=== PATIENT | female | born 1980 | race Caucasian/White ===

== ENCOUNTER 2017-10-16 20:01 | Emergency (ER) | payer OTHER ==
[2017-10-16 20:36] VITALS: TEMP 97.3; BMI 41.3
[2017-10-16] MEDS ORDERED: ONDANSETRON *ODT* 4 MG TABLET SL ONE (20:36)
--- NOTE | 2017-10-16 20:36 | PDOC ---
Rapid Medical Evaluation Time Seen by Provider: 10/16/17 20:31 Medical Evaluation: Allergies Allergy/AdvReac Type Severity Reaction Status Date / Time No Known Allergies Allergy Verified 02/22/16 19:26 10/16/17 20:32 The patient presents with a chief complaint of: Vomiting today. No fever, chills, no pain. I have performed a brief in-person evaluation of this patient. Pertinent physical exam findings: vss, Abdomen soft, non tender, nondistended. Lungs clear. RRR I have ordered the following: Urinalysis, urine culture, urine preg. Zofran 4 mg po x 1 The patient will proceed to the ED for further evaluation. Discharge Disposition - Diagnosis Vomiting Qualifiers: Vomiting type: unspecified Vomiting Intractability: intractable Nausea presence : with nausea Qualified Code(s): R11.2 - Nausea with vomiting, unspecified - Referrals - Patient Instructions - Post Discharge Activity
[2017-10-16 21:09] LABS: HCG,QUALITATIVE URINE NEGATIVE
[2017-10-16 21:14] LABS: URINE APPEARANCE CLEAR; URINE BILIRUBIN NEGATIVE (NEGATIVE); URINE BLOOD NEGATIVE (NEGATIVE); URINE COLOR YELLOW; URINE GLUCOSE (UA) NEGATIVE (NEGATIVE); URINE KETONE NEGATIVE (NEGATIVE); URINE NITRITE NEGATIVE (NEGATIVE); URINE PROTEIN NEGATIVE (NEGATIVE)
[2017-10-16 21:20] LABS: URINE LEUK ESTERASE 1+ (NEGATIVE)
[2017-10-16 21:22] LABS: EPI CELLS FEW /HPF (FEW); URINE MUCUS RARE
[2017-10-16] MEDS ORDERED: RANITIDINE HCL 150 MG TABLET (FP) PO ONE (23:47)
--- NOTE | 2017-10-16 23:47 | PDOC ---
History of Present Illness - General Chief Complaint: Nausea/Vomiting Stated Complaint: VOMITING Time Seen by Provider: 10/16/17 20:31 History Source: Patient - History of Present Illness Initial Comments: 10/16/17 23:44 37 year old female c/o nausea, vomiting since 5 pm after eating shrimp. Denies abdominal pain, diarrhea, urinary symptoms at this time. patient reports that she is currently on Flagyl for Bacterial vaginosis, denies sick contact. Past History - Past Medical History Allergies/Adverse Reactions: Allergies Allergy/AdvReac Type Severity Reaction Status Date / Time No Known Allergies Allergy Verified 10/16/17 20:36 Home Medications: Ambulatory Orders NK [No Known Home Medication] 02/22/16 CVA: No COPD: No - Suicide/Smoking/Psychosocial Hx Smoking History: Never smoked Have you smoked in the past 12 months: No Information on smoking cessation initiated: No Hx Alcohol Use: No Drug/Substance Use Hx: No Substance Use Type: None Review of Systems - Review of Systems Able to Perform ROS?: Yes Is the patient limited Kazakh proficient: No Respiratory: No: Symptoms reported, See HPI, Cough, Orthopnea, Shortness of Breath, SOB with Exertion, SOB at Rest, Stridor, Wheezing, Productive cough, Hemoptysis, Other ABD/GI: Yes: Nausea, Vomiting. No: Symptoms Reported, See HPI, Abdominal Distended, Abd. Pain w/ defecation, Blood Streaked Bowels, Constipated, Diarrhea , Difficulty Swallowing, Poor Appetite, Poor Fluid Intake, Rectal Bleeding, Indigestion, Abdominal cramping, Tarry Stools, Other : No: Symptoms Reported, See HPI, Burning, Dysuria, Discharge, Frequency, Flank Pain, Hematuria, Incontinence, Pain, Urgency, Testicular Mass, Testicular Swelling, Lesions, Testicular Pain, Other *Physical Exam - Vital Signs Last Vital Signs Temp Pulse Resp BP Pulse Ox 97.3 F L 99 H 18 114/67 100 10/16/17 20:32 10/16/17 20:32 10/16/17 20:32 10/16/17 20:32 10/16/17 20:32 - Physical Exam General Appearance: Yes: Appropriately Dressed Respiratory/Chest: positive: Lungs Clear, Normal Breath Sounds Cardiovascular: positive: Regular Rhythm, Regular Rate Gastrointestinal/Abdominal: positive: Tender, Soft, Increased Bowel Sounds Musculoskeletal: positive: Normal Inspection. negative: CVA Tenderness Extremity: positive: Normal Capillary Refill, Normal Inspection, Normal Range of Motion Integumentary: positive: Normal Color, Dry, Warm Neurologic: positive: Fully Oriented, Alert, Normal Mood/Affect ED Treatment Course - ADDITIONAL ORDERS Additional order review: Laboratory Results 10/16/17 20:51 Urine Color Yellow Urine Appearance Clear Urine pH 6.0 Ur Specific Clayton 1.027 Urine Protein Negative Urine Glucose (UA) Negative Urine Ketones Negative Urine Blood Negative Urine Nitrite Negative Urine Bilirubin Negative Urine Urobilinogen 2.0 H Ur Leukocyte Esterase 1+ H Urine WBC (Auto) 2 Urine RBC (Auto) <1 Ur Epithelial Cells Few Urine Mucus Rare Urine HCG, Qual Negative Progress Note - Progress Note Progress Note: A: nausea and vomiting P: Zofran UA/ UCX: no urinary symptoms. Medical Decision Making - Medical Decision Making 10/17/17 01:30 tolerating PO liquids. will advise to continue hydration likely food poisoning vs viral gastroenteritis *DC/Admit/Observation/Transfer Diagnosis at time of Disposition: Gastroenteritis Vomiting Qualifiers: Vomiting type: unspecified Vomiting Intractability: intractable Nausea presence : with nausea Qualified Code(s): R11.2 - Nausea with vomiting, unspecified - Discharge Dispostion Disposition: HOME - Referrals Referrals: STAFF,NOT ON [Primary Care Provider] - - Patient Instructions Printed Discharge Instructions: DI for Vomiting -- Adult Additional Instructions: drink plenty of Fluids start a bland diet. follow up with your doctor as soon as possible return to the ED if symptoms worsen . - Post Discharge Activity Forms/Work/School Notes: Back to Work
[2017-10-17] MEDS ORDERED: RANITIDINE HCL 150 MG TABLET (FP) ONE (00:43)
[2017-10-17 01:49] VITALS: BP 129/87; PULSE 95
== END 2017-10-17 01:48 | disposition home or self-care (01) ==
LOC: JER 20:01
DX: K52.9 Noninfective gastroenteritis and colitis, unspecified (principal)
CPT/HCPCS: 81003; 81015; 84703; 87086; 99281-25

== ENCOUNTER 2017-11-28 07:15 | Inpatient (IN) | payer OTHER ==
[2017-11-27 09:11] VITALS: BMI 42.1
[~2017-11-28 07:15] MED LIST: BUPIVACAINE HCL/PF 0.5% (5MG/ML) 10 ML VIAL IJ ONE
[2017-11-28] MEDS ORDERED: DEXAMETHASONE SOD PHOSPHATE/PF 10 MG/ML SDV ONE (08:20)
[2017-11-28] MEDS ORDERED: BUPIVACAINE HCL/PF 0.25% (2.5MG/ML) 10 ML VIAL ONE (08:21)
[2017-11-28] MEDS ORDERED: MIDAZOLAM HCL 2 MG/2 ML SINGLE DOSE VIAL ONE ×2 (08:22)
[2017-11-28] MEDS ORDERED: ONDANSETRON 4 MG/2 ML VIAL IVPUSH PRN (08:32)
[2017-11-28] MEDS ORDERED: oxyCODONE HCL 5 MG TABLET PO PRN ×2 (08:32)
[2017-11-28] MEDS ORDERED: LACTATED RINGERS SOLUTION 1,000 ML IV SCH (08:45)
--- NOTE | 2017-11-28 09:13 | HP ---
History & Physical Update - History History: No Change - Physical Physical: No Change - Assessment Assessment: No Change - Plan Plan: No Change <Emma Arriaga - Last Filed: 11/28/17 09:12> - Plan Plan: No Change (Laparoscopic possible open vertical sleeve gastrectomy, possoble liver biopsy, upper endoscopy) <Jaime Pimentel - Last Filed: 11/28/17 09:24>
[2017-11-28] MEDS ORDERED: BUPIVACAINE HCL/PF 0.5% (5MG/ML) 10 ML VIAL ONE (09:26)
[2017-11-28] MEDS ORDERED: ceFAZolin SODIUM 1 GM VIAL IVPB ONE (09:50)
--- NOTE | 2017-11-28 11:13 | OP ---
Operative Note - Note: Operative Date: 11/28/17 Pre-Operative Diagnosis: morbid obesity Operation: Laparoscopic vertical sleeve gastrectomy, wedge liver biopsy, laparoscopic umbilical hernia repair, EGD Post-Operative Diagnosis: Other (Morbid obesity, heaptomegaly, umbilical hernia) Surgeon: Jaime Pimentel Splunk Developer: Emma Arriaga Anesthesia: General Specimens Removed: Greater curvature of stomach. Liver biopsy Estimated Blood Loss (mls): 30 Drains & Tubes with Location: 36 Fr bougie Operative Report Dictated: Yes
--- NOTE | 2017-11-28 11:34 | SURG ---
Surgery Portrait Studio Photographer Note Portrait Studio Photographer: Emma Arriaga PA-C Date of Service: 11/28/17 Diagnosis: morbid obesity Procedure: Laparoscopic vertical sleeve gastrectomy, wedge liver biopsy, laparoscopic umbilical hernia repair, EGD I was present for the entirety of the operative procedure. For further detail, please refer to operative report. Visit type - Case Type Case Type: Scheduled Admission - Emergency Emergency Visit: No - New patient This patient is new to me today: Yes Date on this admission: 11/28/17
[2017-11-28] MEDS: METOCLOPRAMIDE HCL INJECTION 10 MG/2 ML VIAL IVPUSH SCH ×3 (11:40→22:56)
[2017-11-28] MEDS: ACETAMINOPHEN 1000 MG/100 ML VIAL (NON FORMULARY) IVPB SCH ×3 (11:50→22:57)
[2017-11-28] MEDS: SODIUM CHLORIDE 1,000 ML IV SCH ×2 (12:25→21:25)
[2017-11-28 12:37] LABS: HEMATOCRIT 37.2 % (32.4-45.2); HEMOGLOBIN 12.9 GM/dL (10.7-15.3); MCH 32.1 pg (25.7-33.7); MCHC 34.8 g/dl (32.0-36.0); MEAN CELL VOLUME 92.4 fl (80-96); MEAN PLT VOLUME 8.1 fl (7.5-11.1); PLATELET COUNT 290 K/MM3 (134-434); RBC 4.03 M/mm3 (3.60-5.2); RDW 13.3 % (11.6-15.6); WHITE BLOOD COUNT 11.1 K/mm3 (4.0-10.0)
[2017-11-28 12:58] LABS: ALBUMIN 3.7 g/dl (3.4-5.0); ANION GAP 8 (8-16); BLOOD UREA NITROGEN 9 mg/dL (7-18); CALCIUM 8.1 mg/dL (8.5-10.1); CHLORIDE 106 mmol/L (98-107); CO2 23 mmol/L (21-32); CREATININE 0.8 mg/dL (0.55-1.02); GLUCOSE,RANDOM 131 mg/dL (74-106); POTASSIUM 4.4 mmol/L (3.5-5.1); SGOT/AST 49 U/L (15-37); SGPT/ALT 57 U/L (12-78); SODIUM 137 mmol/L (136-145)
[2017-11-28 13:00] LABS: ALK PHOS 88 U/L (45-117); BILIRUBIN,TOTAL 0.4 mg/dL (0.2-1.0); TOT PROT 7.1 g/dl (6.4-8.2)
[2017-11-28] MEDS ORDERED: ONDANSETRON 4 MG/2 ML VIAL ONE (13:02)
[2017-11-28] MEDS ORDERED: MORPHINE SULFATE 10 MG/1 ML *VIAL ONE (13:02)
[2017-11-28] MEDS: ONDANSETRON 4 MG/2 ML VIAL IVPUSH SCH ×4 (13:05→22:53)
[2017-11-28] MEDS ORDERED: PROMETHAZINE HCL 25 MG/1 ML VIAL IVPUSH ONE (13:08)
[2017-11-28] MEDS: morphine SULFATE 4 MG/ML VIAL IVPUSH PRN ×2 (13:10→15:48)
--- NOTE | 2017-11-28 16:08 | SPEC ---
DATE OF OPERATION: 11/28/2017 SURGEON: Jaime Pimentel M.D. PRINTED CIRCUIT BOARDS PINNER: Divina Bell and Divina Kennedy PREOPERATIVE DIAGNOSIS: Morbid obesity. POSTOPERATIVE DIAGNOSIS: 1. Morbid obesity. 2. Hepatomegaly. 3. Umbilical hernia. PROCEDURE: 1. Laparoscopic vertical sleeve gastrectomy. 2. Laparoscopic wedge liver biopsy. 3. Esophagogastroduodenoscopy/upper endoscopy. 4. Laparoscopic umbilical hernia repair. SPECIMENS: 1. Greater curvature of the stomach. 2. Wedge liver biopsy. BOUGIE SIZE: 36 [place]. ANESTHESIA: GET DRAINS: None. ESTIMATED BLOOD LOSS: 30 mL. REASON FOR THE PROCEDURE: This is a 37-year-old female presented to the office for weight loss options. After describing different options, decided to proceed with laparoscopic possible open vertical sleeve gastrectomy, possible liver biopsy and upper endoscopy. RISKS AND BENEFITS: After describing the different options for weight loss management, the patient decided to proceed with a laparoscopic, possible open vertical sleeve gastrectomy. The patient was seen by the respective subspecialties and cleared for surgery. The risks and benefits of the procedure were explained. These included bleeding, infection, hernia, DE, DVT, PE, injury to surrounding structures including the liver, colon, bowel, spleen, esophagus, vessel injury, nerve injury, weight regain, gastric leak, staple line leak, sleeve leak, obstruction, vitamin deficiency, hair loss and as some of the possible complications. The patient understood and signed informed consent. DESCRIPTION OF PROCEDURE: The patient was placed supine on the operating room table. The patient underwent general endotracheal intubation. A Tyler catheter was inserted. The arms were brought out at 90 degrees and secured. A footboard was placed and the legs were secured laterally with padding. The abdomen was prepped and draped in the usual sterile fashion. A timeout was performed. An incision was made in the left upper quadrant and a Veress needle inserted. Pneumoperitoneum was established. Subsequently, the Veress needle was removed and a 12-mm trocar was placed. The laparoscopic camera was then inserted and inspection of the abdominal cavity was performed. An incision was then made in the supraumbilical area and a 15-mm trocar was placed under direct visualization. A 5-mm trocar was then placed in the right upper quadrant and a 5-mm trocar was placed below the left subcostal margin. A stab wound was made in the subxiphoid area and a Nirmala clamp inserted and removed to dilate the tract. A Prasanna liver retractor was inserted. The post was secured at the bedside by the nursing staff. The patient was placed in steep reverse Trendelenburg position and the Prasanna liver retractor was used to secure the liver towards the anterior abdominal wall. The pylorus was identified and 6 cm proximal to it, the lesser sac was entered using the LigaSure device. All lateral attachments to the greater curvature of the stomach, including the short gastric vessels, were ligated using the LigaSure device toward the gastrosplenic and gastrophrenic ligaments. Once this was done in its entirety, it was confirmed that all tubes within the nasal or oropharyngeal cavity, including a temperature probe, was removed by Anesthesia. The bougie was then inserted by Anesthesia. Transection of the stomach was then begun staying adjacent to the bougie but away from the angularis. Transection of the stomach was performed near the portion of the stomach where the lesser sac was entered. Two laparoscopic Endo-THOMAS black amol were used at this location. Laparoscopic Endo THOMAS purple staple loads were then used for the remainder of the transection until the greater curvature of the stomach was fully transected. This was done staying close to the bougie. Care was taken to stay away from the angle of His cephalad. The staple line was then inspected. Hemostasis was identified. A leak test was then performed. It was clamped distally to the staple line. Irrigation solution was placed in the left upper quadrant and air was insufflated by Anesthesia into the sleeve. No leaks were identified. No obstruction was identified. This was done through the entirety of the staple line. At this point, the irrigation solution was suctioned and again, hemostasis was noted. A wedge liver biopsy was then performed. The left lobe of the liver was identified and a portion of the edge was grasped. Using electrocautery, a wedge of the liver was excised. This was removed and sent off the field as specimen. Hemostasis at the site of the wedge liver biopsy was attained using electrocautery. The 15-mm supraumbilical trocar was then removed and the greater curvature specimen removed from the site using a sponge stick vásquez. The specimen was inspected and a Veress needle inserted. The specimen insufflated adequately and no leak was identified. The staple line was noted to be intact. A George-Monie device was then used to temporarily close the fascia with a 0 Vicryl suture at the site. The 15-mm trocar was then reinserted and the 12-mm trocar in the left upper quadrant was removed. The fascia at this site was then closed using the George-Monie device with a 0 Vicryl suture. Again, hemostasis was noted. The Prasanna liver retractor was then removed under direct visualization. Pneumoperitoneum was desufflated and the fascial sutures were secured. Hemostasis was noted at all incision sites and Marcaine was injected at all incision sites. All incision sites were closed using 4-0 Biosyn. Sterile dressings were applied. The patient tolerated the procedure well and was transferred to the recovery room in stable condition with the Tyler catheter intact. The patient was transferred to telemetry for further monitoring. ADDENDUM: In addition at the beginning of the case, an umbilical hernia was noted at the insertion of the initial trocar. At the end, the laparoscopic umbilical hernia repair was performed using a number 1 Vicryl suture with George Monie device. Fascia was noted to be closed and intact at the end. In addition, upper endoscopy was performed in order to further evaluate for obstruction/leak. The endoscope was inserted into the patient's mouth and the entirety of the stomach, staple line, gastric pouch was inspected. Hemostasis was noted. No leak or obstruction was noted, the stomach was suctioned, and the endoscope removed. The patient tolerated procedure well, was transferred to recovery room in stable condition. Cecilia [id number]
[2017-11-28] MEDS: FAMOTIDINE 20 MG/50 ML IVPB 20 MG/50 ML MG IVPB SCH (21:44)
[2017-11-28] MEDS: ENOXAPARIN NA (PORCINE) 40 MG/0.4 ML DISP.SYRIN SQ SCH (21:47)
[2017-11-29] MEDS: ONDANSETRON 4 MG/2 ML VIAL IVPUSH SCH ×6 (03:21→23:52)
[2017-11-29] MEDS: morphine SULFATE 4 MG/ML VIAL IVPUSH PRN ×4 (03:25→20:28)
[2017-11-29] MEDS: METOCLOPRAMIDE HCL INJECTION 10 MG/2 ML VIAL IVPUSH SCH ×4 (05:01→23:49)
[2017-11-29] MEDS: ACETAMINOPHEN 1000 MG/100 ML VIAL (NON FORMULARY) IVPB SCH (05:01)
[2017-11-29] MEDS: SODIUM CHLORIDE 1,000 ML IV SCH ×3 (05:12→18:22)
[2017-11-29 07:03] LABS: MCH 31.6 pg (25.7-33.7); MCHC 34.2 g/dl (32.0-36.0); MEAN CELL VOLUME 92.4 fl (80-96); MEAN PLT VOLUME 8.3 fl (7.5-11.1); PLATELET COUNT 275 K/MM3 (134-434); RBC 3.79 M/mm3 (3.60-5.2); RDW 13.4 % (11.6-15.6); WHITE BLOOD COUNT 10.4 K/mm3 (4.0-10.0)
[2017-11-29 07:23] LABS: ALBUMIN 3.1 g/dl (3.4-5.0); ANION GAP 7 (8-16); BLOOD UREA NITROGEN 7 mg/dL (7-18); CALCIUM 8.2 mg/dL (8.5-10.1); CHLORIDE 106 mmol/L (98-107); CO2 23 mmol/L (21-32); CREATININE 0.6 mg/dL (0.55-1.02); GLUCOSE,RANDOM 95 mg/dL (74-106); POTASSIUM 5.1 mmol/L (3.5-5.1); SGOT/AST 48 U/L (15-37); SGPT/ALT 60 U/L (12-78); SODIUM 136 mmol/L (136-145)
[2017-11-29 07:26] LABS: ALK PHOS 75 U/L (45-117); BILIRUBIN,TOTAL 0.4 mg/dL (0.2-1.0); TOT PROT 6.1 g/dl (6.4-8.2)
--- NOTE | 2017-11-29 08:03 | PN ---
Addendum entered and electronically signed by Seb Bennett PA 11/29/17 11:21: UGI: no leak or extravasation. no evidence of gastric outlet obstruction. Bariatric stage 1 diet ordered Original Note: Progress Note (short form) - Note Progress Note: POD #1 No acute events since surgery per RN notes. Alert. Ambulating unassisted. Voiding spontaneosuly. C/o mild incisional tenderness. Adequate pain control via prn meds. Denies n/v/f/c, CP, palpitations or SOB. Last Vital Signs Temp Pulse Resp BP Pulse Ox 99 F 65 18 151/82 99 11/29/17 04:59 11/29/17 04:59 11/29/17 04:59 11/29/17 04:59 11/28/17 20:31 Gen: nad Abd: all surgical ports c/d/i. no hematoma LE: SCDs bilat. soft. nt. <Seb Bennett P - Last Filed: 11/29/17 07:59> - Note Progress Note: Agree POD 1 Pain controlled Abd soft UGI: no leak/obstruction Clears Ambulate <Jaime Pimentel - Last Filed: 11/29/17 15:49> Problem List - Problems (1) Morbid obesity due to excess calories Assessment/Plan: Going down for UGI this morning to r/o leak. If no leak confirmed will start her on POD #1 Bariatric Protocol Cont to ambulate Incentive spirometer Pain management prn Tylenol for fever > 100.3F Code(s): E66.01 - MORBID (SEVERE) OBESITY DUE TO EXCESS CALORIES <Seb Bennett P - Last Filed: 11/29/17 07:59>
[2017-11-29] MEDS: ENOXAPARIN NA (PORCINE) 40 MG/0.4 ML DISP.SYRIN SQ SCH ×2 (10:07→21:46)
[2017-11-29] MEDS: FAMOTIDINE 20 MG/50 ML IVPB 20 MG/50 ML MG IVPB SCH ×2 (10:07→21:46)
[2017-11-29] MEDS ORDERED: FLU VACCINE QUAD 60 MCG/0.5 ML (MDV 17-18) IM ONE (12:00)
--- NOTE | 2017-11-29 12:46 | PATH ---
Surgical Pathology Report Patient Name: RICCI BUSBY [facility]. Rec. #: [id number] /Age/Gender: 1980 (Age: 37) / F Account: [id number] Location: 4 W TELEMETRY U Taken: 11/28/2017 Received: 11/28/2017 Reported: 11/29/2017 Physicians: Jaime Pimentel M.D. Specimen(s) Received A: LIVER BIOPSY B: GREATER CURVATURE STOMACH Clinical History Morbid obesity Final Diagnosis A. LIVER, BIOPSY: LIVER PARENCHYMA WITH MINIMAL STEATOSIS (< 1%). NO INCREASE IN IRON AND FIBROSIS ON PERFORMED SPECIAL STAINS (IRON AND TRICHROME). B. STOMACH, GREATER CURVATURE, LAPAROSCOPIC VERTICAL SLEEVE GASTRECTOMY: PORTION OF STOMACH WITH MILD CHRONIC GASTRITIS. IMMUNOHISTOCHEMICAL STAIN FOR H. PYLORI IS NEGATIVE. Electronically Signed Maribell Allen M.D. Gross Description A. Received in formalin labeled "liver biopsy," is a 3.0 x 2.2 x 0.4 cm aggregate of 3 ruiz, irregular portions of soft tissue, consistent with liver tissue. Traveling Crane Operator sections are submitted in one cassette. B. Received in formalin, labeled "greater curvature of stomach," is a 80 gram, 16.0 x 3.0 x 2.5 cm. portion of stomach with a stapled margin of resection. The serosa is ruiz-stark with minimal attached fat. The mucosa is ruiz-pink with normal folds. No mucosal masses are identified. Traveling Crane Operator sections are submitted in one cassette. DL/11/28/2017 saudi/11/28/2017
[2017-11-30] MEDS: morphine SULFATE 4 MG/ML VIAL IVPUSH PRN ×3 (00:39→09:01)
[2017-11-30] MEDS: ONDANSETRON 4 MG/2 ML VIAL IVPUSH SCH ×2 (03:23→06:37)
[2017-11-30] MEDS: METOCLOPRAMIDE HCL INJECTION 10 MG/2 ML VIAL IVPUSH SCH (05:43)
[2017-11-30 05:45] VITALS: PULSE 78
[2017-11-30] MEDS: FAMOTIDINE 20 MG/50 ML IVPB 20 MG/50 ML MG IVPB SCH (09:02)
[2017-11-30] MEDS: ENOXAPARIN NA (PORCINE) 40 MG/0.4 ML DISP.SYRIN SQ SCH (09:02)
[2017-11-30 10:25] VITALS: BP 128/70; TEMP 98
[2017-11-30] MEDS ORDERED: FLU VACCINE QUAD 60 MCG/0.5 ML (MDV 17-18) IM ONE (11:00)
== END 2017-11-30 12:00 | disposition home or self-care (01) | DRG 403 ==
LOC: JSAMEDAYSX 07:15 → EDSTATUS 11:00 → J4W 14:45
PROVIDERS: ADMIT Surgery; ATTEND Surgery
PROC: 0WQF4ZZ Repair Abdominal Wall, Percutaneous Endoscopic Approach (ICD-10-PCS; 2017-11-28)
PROC: 0DB64Z3 Excision of Stomach, Percutaneous Endoscopic Approach, Vertical (ICD-10-PCS; principal; 2017-11-28 09:00)
PROC: 0FB24ZX Excision of Left Lobe Liver, Percutaneous Endoscopic Approach, Diagnostic (ICD-10-PCS; 2017-11-28 09:00)
PROC: 0DJ08ZZ Inspection of Upper Intestinal Tract, Via Natural or Artificial Opening Endoscopic (ICD-10-PCS; 2017-11-28 09:00)
DX: E66.01 Morbid (severe) obesity due to excess calories (principal); R16.0 Hepatomegaly, not elsewhere classified; K42.9 Umbilical hernia without obstruction or gangrene; Z68.41 Body mass index [BMI] 40.0-44.9, adult
CPT/HCPCS: 36415; 74241-TC-FY; 80053; 84703; 85027; 86850; 86900; 86901; 88307-TC; 90688; 94010; 94760; G0008; J0131; J7030